=== PATIENT | male | born 1950 | race Caucasian/White ===

== ENCOUNTER 2020-08-14 08:00 | Outpatient (CLI) | payer OTHER ==
--- NOTE | 2020-08-14 15:40 | XRAY Report ---
PROCEDURE: Foot 3 View LT INDICATIONS: CONTUSION OF LEFT TOE TECHNIQUE: 3 views of the foot were acquired. COMPARISON: None FINDINGS: Bones: In this patient with this given history, scrutiny is given to the fourth toe. No fractures or dislocations can be seen of this toe. No Fractures or dislocations are seen elsewhere. No suspicious bony lesions. Soft tissues: Fourth toe soft tissue swelling is seen. No tibiotalar joint effusion. Achilles tendo n appears normal. Calcification can be seen of the distal arteries, which is commonly observed in pa tients with long-standing diabetes. Please correlate with known patient history. IMPRESSION: Negative for displaced fracture of the fourth toe or elsewhere. Reviewed by: Tate Cooley MD on 08/14/2020 2:38 PM ED Approved by: Tate Cooley MD on 08/14/2020 2:38 PM ED Station ID: [id number]
== END 2020-08-14 23:59 | disposition home or self-care (01) ==
LOC: DI.S 08:00
PROVIDERS: ATTEND Emergency Medicine
DX: S90.122A Contusion of left lesser toe(s) without damage to nail, initial encounter (principal)